=== PATIENT | female | born 1995 | race Caucasian/White ===

== ENCOUNTER 2022-01-23 13:10 | Outpatient (REF) | payer OTHER, MEDICAID, SELFPAY ==
[2022-01-23 17:17] LABS: CT PCR NOT DETECTED (Not Detect.); NG PCR NOT DETECTED (Not Detect.)
[2022-01-24 13:19] LABS: BV Int Neg Control Negative (Negative); BV Int Pos Control Positive (Positive)
== END 2022-01-23 13:11 | disposition home or self-care (01) ==
LOC: HO.LAB 13:10
PROVIDERS: Visit Provider Advanced Practice Midwife
DX: Z01.419 Encounter for gynecological examination (general) (routine) without abnormal findings (principal); Z20.2 Contact with and (suspected) exposure to infections with a predominantly sexual mode of transmission
CPT/HCPCS: 87480; 87491; 87510; 87591; 87660; 88142

== ENCOUNTER 2022-08-16 21:47 | Emergency (ER) | payer OTHER, SELFPAY ==
--- NOTE | ~2022-08-16 | XR_ITS ---
EXAMINATION: XR SOFT TISSUE NECK CLINICAL INDICATION: Foreign body sensation COMPARISON: None TECHNIQUE: 2 views of the soft tissue neck were obtained. FINDINGS: No convincing evidence for a radiopaque foreign body. The glottis is within normal limits. Probable calcifying cartilaginous structures. Prevertebral soft tissues within normal limits. XR/XR soft tissue neck IMPRESSION: No convincing evidence for radiopaque foreign body. If Further evaluation is warranted consider CT of the neck
[2022-08-16 21:54] VITALS: BP 117/73; PULSE 77; O2SAT 100
[2022-08-16 23:44] VITALS: BP 96/72; PULSE 88; RESP 16; TEMP 36.8; O2SAT 95; BMI 20.1
[2022-08-17 00:23] LABS: Influenza A PCR NEGATIVE (Negative); Influenza B PCR NEGATIVE (Negative); Resp Syncy Virus RNA Qual PCR NEGATIVE (Negative); SARS COV2 PCR INHOUSE NEGATIVE (Negative)
== END 2022-08-17 01:15 | disposition left against medical advice (07) ==
PROVIDERS: Emergency Provider Emergency Medicine
DX: R09.89 Other specified symptoms and signs involving the circulatory and respiratory systems (principal); J02.9 Acute pharyngitis, unspecified; Z20.822 Contact with and (suspected) exposure to COVID-19
CPT/HCPCS: 0241U; 70360; 99281; 99283

== ENCOUNTER 2022-11-25 09:38 | Emergency (ER) | payer OTHER, SELFPAY ==
[2022-11-25 09:47] VITALS: BP 102/71; PULSE 99; RESP 20; TEMP 37.1; O2SAT 97; BMI 16.1
[2022-11-25 10:19] LABS: COVID-19 Test Negative (Negative); IDNOW Serial# 16C4AD1C
[2022-11-25 10:24] LABS: IDNOW Serial# BCCEAD1C; Influenza A Positive (Negative); Influenza B2 Negative (Negative)
--- NOTE | 2022-11-25 10:58 | ED_ITS ---
HPI - URI/Sore Throat General Chief Complaint: Upper Respiratory Symptoms Stated Complaint: Flu symptoms Time Seen by Provider: 11/25/22 10:46 Source: patient Mode of arrival: ambulatory History of Present Illness HPI Narrative: 27-year-old female with no significant past medical history presenting to the ED complaining of myalgias, chills, body aches, subjective fever, and productive cough since yesterday. Reports mild SOB. Denies ear pain, sore throat, chest pain, pedal edema, recent travel, sick contacts MD elicited complaint: fever, cough, rhinorrhea and nasal congestion Related Data Previous Rx's Medication Instructions Recorded doxycycline hyclate 100 mg tablet 100 mg PO BID #14 tabs 01/25/22 metronidazole 500 mg tablet 500 mg PO Q12H #14 tabs 01/25/22 albuterol sulfate 90 mcg/actuation 2 puff inhalation Q4-6H PRN 11/25/22 aerosol inhaler shortness of breath or wheezing #6.7 grams benzonatate 100 mg capsule 100 mg PO TID PRN cough #14 caps 11/25/22 fluticasone propionate 50 2 spray intranasal DAILY #16 grams 11/25/22 mcg/actuation nasal spray,suspension (Flonase Allergy Relief) Allergies Allergy/AdvReac Type Severity Reaction Status Date / Time No Known Allergies Allergy Unverified 01/23/22 13:18 Review of Systems Review of Systems: Constitutional: +subj Fever, + Chills ENT/Mouth: No Ear Pain, + Nasal Congestion, No Sinus Pain, No Hoarseness, No sore throat, + Rhinorrhea, No Swallowing Difficulty Cardiovascular: No Chest Pain, + SOB Respiratory: + Cough, + Sputum, No Wheezing Gastrointestinal: No Nausea, No Vomiting, No Diarrhea, No Constipation, No Abdominal pain Genitourinary: No Dysuria, No Urinary Frequency, No Hematuria, No Flank Pain Musculoskeletal: No joint pain, + Myalgias, No Joint Swelling Skin: No Skin Lesions, No rash Neuro: No Weakness, No Numbness, No Paresthesias Yes all other systems are reviewed and are negative Constitutional: Constitutional: Reports as per [facility] Past Medical History Attestation statement: The following information was validated with the patient. Social History Social History Alcohol intake: never Patient Tobacco Use Status: Never used Tobacco Advance Directives: No Advance Directives Information Provided: No Gender identity: Female Physical Exam Vital Signs: Vital Signs: Last Vital Signs Temp 98.8 F 11/25/22 09:47 Pulse 97 11/25/22 11:22 Resp 16 11/25/22 11:22 BP 102/71 11/25/22 09:47 Pulse Ox 97 11/25/22 09:47 O2 Del Method 11/25/22 09:47 BMI result Body Mass Index 16.1 Const: General: cooperative, healthy appearing and no acute distress Orientation/consciousness: patient oriented x3 Limitations: no limitations HEENT: Head: Yes normal to inspection and Yes atraumatic Ears: hearing courtney sly normal bilaterally, external ears normal, TM's normal bilaterally and mastoids normal General nose exam: Normal external nose present Face and sinus: Yes normal facial exam Mouth: Normal oral and palatal mucosa present Throat: Yes posterior oropharynx normal, Yes tonsils normal, Yes uvula midline, No peritonsillar mass, No uvula laterally displaced and No uvular edema Eyes: General: appearance normal, both eyes and all related structures EOM: EOMs intact bilaterally Neck: Neck: Yes normal visual inspection and Yes no meningeal signs Resp: Effort & Inspection: normal respiratory effort and no respiratory distress Auscultation: wheezes (Mild end-expiratory) Cardio: Rate: regular rate Heart sounds: S1 normal heart sound present and S2 normal heart sound present GI: Inspection: Yes normal to inspection Palpation (GI): Soft to palpation, nontender, no guarding and not rigid Skin: Rashes: no rashes Wounds: no wounds Neuro: General: patient oriented x3, tone normal and no meningeal signs Gait exam (Neuro): Normal gait present Extrem: General: Yes normal to inspection, Yes no pedal edema and Yes no calf tenderness Course Course Course Narrative: -Influenza a positive XR chest 1V IMPRESSION: Unremarkable examination. Results discussed with patient including worrisome signs and symptoms and strict return precautions, and when to return to the emergency department. They verbalized understanding and feel safe for discharge at this time. Medications Administered Discontinued Medications Generic Name Dose Route Start Last Admin Trade Name Freq PRN Reason Stop Dose Admin Albuterol/Ipratropium 3 ml 11/25/22 11:05 11/25/22 11:21 Albuterol/Iprat 2.5/0.5mg 3 Ml Ampul.Neb INHALE 11/25/22 11:06 3 ml ONCE ONE Administration Medical Decision Making Medical Decision Making [facility] Narrative: 27-year-old female with no significant past medical history presenting to the ED complaining of myalgias, chills, body aches, subjective fever, and productive cough since yesterday. On exam vital signs stable, NAD, nontoxic appearing, mild end-expiratory wheeze noted, no pedal edema/calf tenderness. Concern for viral illness vs bronchitis vs pneumonia. Lower suspicion for ACS/PE Plan: COVID-19/influenza/RSV testing, CXR, DuoNeb Differential Diagnosis Differential Diagnoses: The differential diagnosis associated with the presenta tion includes As above Lab Data Labs: Lab Results 11/25/22 11/25/22 Range/Units 09:52 09:52 COVID-19 (RADHIKA) Negative (Negative) COVID-19 Clin Com See Note Influenza Type A (SHIV) Positive A (Negative) Influenza Type B (SHIV) Negative (Negative) Influenza A & B Note See Note Discharge Plan Discharge Clinical Impression: Influenza A Patient Disposition: Home, Self-Care Instructions: Influenza (ED) Additional Instructions: You have influenza A. your x-ray is unremarkable Take Tylenol and Motrin. Rest. Stay hydrated. Flonase is a nasal decongestion. Tessalon Perles are for cough. Albuterol inhaler can help with wheezing/shortness of breath If symptoms persist or worsen, you have fever unresolved medications return to the emergency department Follow-up with your doctor Prescriptions: New benzonatate 100 mg capsule 100 mg PO TID PRN (Reason: cough) Qty: 14 0RF albuterol sulfate 90 mcg/actuation HFA aerosol inhaler 2 puff inhalation Q4-6H PRN (Reason: shortness of breath or wheezing) Qty: 6.7 0RF fluticasone propionate [Flonase Allergy Relief] 50 mcg/actuation spray,suspension 2 spray intranasal DAILY Qty: 16 0RF Rx Instructions: administer into each nostril No Action doxycycline hyclate 100 mg tablet 100 mg PO BID Qty: 14 0RF metronidazole 500 mg tablet 500 mg PO Q12H Qty: 14 0RF Referrals: Physician,None [Primary Care Provider] - 5 days
[2022-11-25 11:22] VITALS: PULSE 97; RESP 16; O2SAT 99
== END 2022-11-25 13:06 | disposition home or self-care (01) ==
PROVIDERS: Emergency Provider Emergency Medicine
DX: J11.1 Influenza due to unidentified influenza virus with other respiratory manifestations (principal); R06.02 Shortness of breath
CPT/HCPCS: 71045; 87502; 87635; 94640; 99283; 99284

== ENCOUNTER 2023-02-25 02:00 | Emergency (ER) | payer OTHER, SELFPAY ==
--- NOTE | ~2023-02-25 | XR_ITS ---
EXAMINATION: XR HAND, RIGHT CLINICAL INFORMATION: Right thumb pain. Trauma. COMPARISON: None available. TECHNIQUE: PA, lateral, and oblique views of the right hand. FINDINGS: No fracture or dislocation. Appropriate alignment. Joint spaces are maintained. The soft tissues are unremarkable. XR/XR hand RT min 3V IMPRESSION: Normal right hand.
[2023-02-25 02:09] VITALS: BP 115/88; PULSE 76; RESP 18; TEMP 36.3; O2SAT 98; BMI 21.7
--- NOTE | 2023-02-25 02:42 | ED.UPPEXIN ---
HPI - Extremity Injury (Upper) General Chief Complaint: Wound/Laceration Stated Complaint: Bruise on right thumb Time Seen by Provider: 02/25/23 02:27 Source: patient Mode of arrival: ambulatory Limitations: no limitations History of Present Illness HPI narrative: Patient came for right thumb pain after she jammed in the car door last night since then complaining of throbbing pain with blood under the nail no other injury Related Data Previous Rx's Medication Instructions Recorded doxycycline hyclate 100 mg tablet 100 mg PO BID #14 tabs 01/25/22 metronidazole 500 mg tablet 500 mg PO Q12H #14 tabs 01/25/22 albuterol sulfate 90 mcg/actuation 2 puff inhalation Q4-6H PRN 11/25/22 aerosol inhaler shortness of breath or wheezing #6.7 grams benzonatate 100 mg capsule 100 mg PO TID PRN cough #14 caps 11/25/22 fluticasone propionate 50 2 spray intranasal DAILY #16 grams 11/25/22 mcg/actuation nasal spray,suspension (Flonase Allergy Relief) Allergies Allergy/AdvReac Type Severity Reaction Status Date / Time No Known Allergies Allergy Verified 02/25/23 02:12 Review of Systems Review of Systems: Yes all other systems are reviewed and are negative [facility] Social History Social History Alcohol intake: current Alcohol intake frequency: holidays/special occasions only Patient Tobacco Use Status: Never used Tobacco Smoked in Last 30 Days: Yes Use of substances other than those prescribed or required for medical reasons: No Advance Directives: No Patient : No Gender identity: Female Physical Exam Vital Signs: Vital Signs: Last Vital Signs Temp 97.4 F 02/25/23 02:09 Pulse 76 02/25/23 02:09 Resp 18 02/25/23 02:09 BP 115/88 02/25/23 02:09 Pulse Ox 98 02/25/23 02:09 O2 Del Method Room Air 02/25/23 02:09 BMI result Body Mass Index 21.7 Extrem: Hand/finger images: 1. Small subungual hematoma with swelling of the left thumb neurovascular intact good range of movement Medical Decision Making Medical Decision Making MDM Narrative: Small right subungal hematoma with contusion blood drained by using heat cautery patient feeling much better dressing applied x-ray negative for fracture Procedures Procedure Narrative Procedure Narrative: Subungual hematoma drainage right thumb using heat cautery 2 puncture holes were made at the base of right thumb and old blood was drained patient felt much better Discharge Plan Discharge Clinical Impression: Hematoma, subungual, thumb, right Patient Disposition: Home, Self-Care Instructions: Hematoma (ED) Additional Instructions: Local care as advised Ibuprofen for pain Prescriptions: No Action doxycycline hyclate 100 mg tablet 100 mg PO BID Qty: 14 0RF metronidazole 500 mg tablet 500 mg PO Q12H Qty: 14 0RF benzonatate 100 mg capsule 100 mg PO TID PRN (Reason: cough) Qty: 14 0RF albuterol sulfate 90 mcg/actuation HFA aerosol inhaler 2 puff inhalation Q4-6H PRN (Reason: shortness of breath or wheezing) Qty: 6.7 0RF fluticasone propionate [Flonase Allergy Relief] 50 mcg/actuation spray,suspension 2 spray intranasal DAILY Qty: 16 0RF Rx Instructions: administer into each nostril Stand Alone Forms: Work/School Release Interventions: ED Discharge Assessment Last Done: 02/25/23 03:55 Discharge Date/Time: 02/25/23 03:55
== END 2023-02-25 03:55 | disposition home or self-care (01) ==
PROVIDERS: Emergency Provider Internal Medicine
DX: S60.111A Contusion of right thumb with damage to nail, initial encounter (principal); W23.0XXA Caught, crushed, jammed, or pinched between moving objects, initial encounter; Y93.89 Activity, other specified; Y92.810 Car as the place of occurrence of the external cause; Y99.9 Unspecified external cause status
CPT/HCPCS: 11740; 73130; 99283; 99284

== ENCOUNTER 2023-03-04 11:33 | Outpatient (REF) | payer OTHER, SELFPAY ==
[2023-03-05 10:32] LABS: CT PCR NOT DETECTED (Not Detect.); NG PCR NOT DETECTED (Not Detect.)
[2023-03-05 13:05] LABS: BV Int Neg Control Negative (Negative); BV Int Pos Control Positive (Positive)
== END 2023-03-04 11:34 | disposition home or self-care (01) ==
LOC: HO.LAB 11:33
PROVIDERS: Visit Provider Advanced Practice Midwife
DX: Z20.2 Contact with and (suspected) exposure to infections with a predominantly sexual mode of transmission (principal); Z30.017 Encounter for initial prescription of implantable subdermal contraceptive; Z30.09 Encounter for other general counseling and advice on contraception
CPT/HCPCS: 0353U; 87480; 87510; 87660

== ENCOUNTER 2023-03-04 13:05 | Outpatient (REF) | payer OTHER, SELFPAY | END 2023-03-04 13:06 | disposition home or self-care (01) | LOC: HO.LNP 13:05 | PROVIDERS: Visit Provider Advanced Practice Midwife | DX: Z01.419 Encounter for gynecological examination (general) (routine) without abnormal findings (principal) | CPT/HCPCS: 88142 ==

== ENCOUNTER → 2023-05-06 14:34 | Outpatient (BNVA) | payer OTHER, SELFPAY | PROVIDERS: Visit Provider Advanced Practice Midwife | DX: Z30.017 Encounter for initial prescription of implantable subdermal contraceptive (principal); Z30.09 Encounter for other general counseling and advice on contraception | CPT/HCPCS: 11981; 81025; 99212; J7307 ==

== ENCOUNTER 2023-08-13 11:01 | Outpatient (AMB) | payer OTHER, SELFPAY ==
[2023-08-13 11:32] VITALS: BP 110/70; BMI 24.6
--- NOTE | 2023-08-13 11:32 | MHC.OFFVIS ---
Intake Vital Signs 08/13/23 11:32 Height 5 ft 6 in Weight 152 lb 6 oz BMI 24.6 BP 110/70 Blood Pressure Location Rt brachial Position Sitting Intake Visit Reasons: Nexplanon removal Allergies No Known Allergies Allergy (Verified 08/13/23 11:34) Medication List - Last Reconciled 08/13/23 by Anh Basurto CNM etonogestrel (Nexplanon) subdermal HPI Nexplanon removal HPI Details Patient is here because she was hoping to get her Nexplanon removed today. She called for this appointment this morning she has a scheduled appointment to discuss this in October but she had a cancellation from work because of the schools being closed because of the water main break so she called for this today. She had the Nexplanon removed inserted after full counseling in May. She has use other methods of control before. She also uses condoms. She and her partner have had discussions and she says that he is not ready for parenting and she has had the conversation with him that if she did get she would continue the . She is experiencing unpleasant pinkish brownish discharge kind of all the time it is not bleeding like full. There is no malodor or itching she is not worried about STDs. She also has been experiencing decreased libido and being more dry and she finds these unpleasant and she wants to go back to her own self without extraneous hormones. At the end of the visit she also shared that she is actually contemplating breaking up with this particular partner but she does not feel the need to necessarily be sexually active until she finds herself in the place with the right person. She was aware of signs of fertility and ovulation based on symptoms and increased libido before iron to this being inserted. She is content with condom use and actually likes it also for STI prevention and safety and if she became active with anyone else even she would use condoms. I discussed that it is important that were having this conversation today but that I do not remove Nexplanon on an urgent basis unless there is an urgent reason to do so and I did discuss the option of planning for a sooner appointment for removal of the Nexplanon now that she is planning and also using a temporary course of oral contraceptives that she could take for either a week or continue for the full pill pack to see if it would at least ameliorate the bleeding spotting discharge issues breakthrough bleeding on the Nexplanon is a common concerned this sometimes can be managed with a brief course of oral contraceptives. I offered this to her but we will plan on a sooner removal of the Nexplanon should an appointment open up sooner than October. Discussed safer sex and her desires for self-care and safer sex and guarding of her fertility and autonomy, as she moves forward. [facility] Social History Alcohol intake: current Alcohol intake frequency: holidays/special occasions only Patient Tobacco Use Status: Never used Tobacco Gender identity: Female Female Reproductive History Menstrual Age of Menarche: 17 Physical Exam Vital Signs: Last Vital Signs BP 110/70 08/13/23 11:32 BMI result Body Mass Index 24.6 Const Other: Nexplanon is palpable in the patient's left arm. Assessment & Plan Assessment & Plan (1) control counseling: Code(s): Z30.09 - Encounter for other general counseling and advice on contraception (2) Breakthrough bleeding on Nexplanon: Code(s): N92.1 - Excessive and frequent menstruation with irregular cycle; Z97.5 - Presence of (intrauterine) contraceptive device Plan Patient is here because she was hoping to get her Nexplanon removed today. She called for this appointment this morning she has a scheduled appointment to discuss this in October but she had a cancellation from work because of the schools being closed because of the water main break so she called for this today. She had the Nexplanon removed inserted after full counseling in May. She has use other methods of control before. She also uses condoms. She and her partner have had discussions and she says that he is not ready for parenting and she has had the conversation with him that if she did get she would continue the . She is experiencing unpleasant pinkish brownish discharge kind of all the time it is not bleeding like full. There is no malodor or itching she is not worried about STDs. She also has been experiencing decreased libido and being more dry and she finds these unpleasant and she wants to go back to her own self without extraneous hormones. At the end of the visit she also shared that she is actually contemplating breaking up with this particular partner but she does not feel the need to necessarily be sexually active until she finds herself in the place with the right person. She was aware of signs of fertility and ovulation based on symptoms and increased libido before iron to this being inserted. She is content with condom use and actually likes it also for STI prevention and safety and if she became active with anyone else even she would use condoms. I discussed that it is important that were having this conversation today but that I do not remove Nexplanon on an urgent basis unless there is an urgent reason to do so and I did discuss the option of planning for a sooner appointment for removal of the Nexplanon now that she is planning and also using a temporary course of oral contraceptives that she could take for either a week or continue for the full pill pack to see if it would at least ameliorate the bleeding spotting discharge issues breakthrough bleeding on the Nexplanon is a common concerned this sometimes can be managed with a brief course of oral contraceptives. I offered this to her but we will plan on a sooner removal of the Nexplanon should an appointment open up sooner than October. Discussed safer sex and her desires for self-care and safer sex and guarding of her fertility and autonomy, as she moves forward. Medications: New desog-e.estradiol/e.estradiol 0.15-0.02 mgx21 /0.01 mg x 5 May take for 1 week, or the full pack for breakthrough bleeding from nexplanon 1 tab PO DAILY 28 tabs 0RF Coding Level of Care Code Est Pt Level 3 (84912) Diagnoses control counseling Z30.09 Breakthrough bleeding on Nexplanon N92.1; Z97.5
== END 2023-08-13 12:19 | disposition home or self-care (01) ==
PROVIDERS: Visit Provider Advanced Practice Midwife
DX: Z30.09 Encounter for other general counseling and advice on contraception (principal); N92.1 Excessive and frequent menstruation with irregular cycle; Z97.5 Presence of (intrauterine) contraceptive device
CPT/HCPCS: 99213

== ENCOUNTER → 2023-08-13 11:01 | Outpatient (BNVA) | payer OTHER, SELFPAY | PROVIDERS: Visit Provider Advanced Practice Midwife | DX: Z30.09 Encounter for other general counseling and advice on contraception (principal); N92.1 Excessive and frequent menstruation with irregular cycle; Z97.5 Presence of (intrauterine) contraceptive device | CPT/HCPCS: 99212 ==

== ENCOUNTER 2023-10-06 09:27 | Outpatient (AMB) | payer OTHER, SELFPAY ==
[2023-10-06 09:44] VITALS: BP 106/68; BMI 26.3
--- NOTE | 2023-10-06 09:44 | A.OFFVIS_ITS ---
Intake Vital Signs 10/06/23 09:44 Height 5 ft 6 in Weight 163 lb BMI 26.3 BP 106/68 Intake Visit Reasons: Nexplanon removal Aemt Required: No Information Interpreted: non-clinical & clinical Grants Officer: Grants Officer Present (Aidyn) Allergies No Known Allergies Allergy (Verified 10/06/23 09:44) Medication List - Last Reconciled 10/06/23 by Anh Basurto CNM etonogestrel (Nexplanon) subdermal Is last menstrual period known: No Post menopausal: No Patient : No HPI Nexplanon removal HPI Details Patient is here to get her Nexplanon removed it was inserted in May s he has not had her period since she does not like how she feels with it in sort of premenstrual all the time and she also has gained weight on it. 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 She needs a note to excuse her from work today. She has broken up with her partner she still has the control pills if she wanted to start them but she actually thinks that she would prefer to use condoms she did have a condom break in May and she used Plan B and she thinks that that would be her main planned but she still has the pills in case she wanted to start them. [facility] Social History Alcohol intake: current Alcohol intake frequency: holidays/special occasions only Patient Tobacco Use Status: Never used Tobacco Gender identity: Female Female Reproductive History Menstrual Age of Menarche: 17 control method: implanted Date of last pap smear: 03/05/23 (negative) Physical Exam Vital Signs: Last Vital Signs BP 106/68 10/06/23 09:44 BMI result Body Mass Index 26.3 Const Other: Nexplanon palpable in left arm. Office Procedures Contraception Insert/Removal Details Details: Nexplanon Removal/Reinsertion Insertion Procedure The patient was placed in a supine position with her non dominant hand resting under her head. The insertion site was located: 8-10cm from the medial epicondyle notch of the humerus, posterior to the sulcus, between the triceps and biceps muscle. The area of the previous implant was identified and the distal tip located. This area was cleansed with an alcohol prep and 3 ml of 1% Lidocaine on a 25 gauge needle and syringe was utilized for adequate anesthesia to the insertion site. After ascertaining adequate anesthesia, the area was prepped with Betadine solution. The skin over the distal tip was incised with a #11 blade scalpel and the capsule was located and entered freeing the implant from the canal. The implant was removed with a gentle tug using a mosquito clamp and removed intact. Direct pressure was applied to the insertion site for hemostasis, minimal bleeding was observed. Steri strips, Tegaderm covering, gauze pads, and Rosa wrap dressing were secured with paper tape. The implant was palpable underneath the skin by myself and the patient. The patient tolerated the procedure well and left the office in good condition. [id number] - Removal Results AMB Test Urine AMB Test Urine Negative Last Edit by CASIMIRO Ramos on 10/06/23 09:50 Assessment & Plan Assessment & Plan (1) Encounter for Nexplanon removal: Code(s): Z30.46 - Encounter for surveillance of implantable subdermal contraceptive (2) control counseling: Code(s): Z30.09 - Encounter for other general counseling and advice on contraception Plan Nexplanon Removal/Reinsertion Insertion Procedure The patient was placed in a supine position with her non dominant hand resting under her head. The insertion site was located: 8-10cm from the medial epicondyle notch of the humerus, posterior to the sulcus, between the triceps and biceps muscle. The area of the previous implant was identified and the distal tip located. This area was cleansed with an alcohol prep and 3 ml of 1% Lidocaine on a 25 gauge needle and syringe was utilized for adequate anesthesia to the insertion site. After ascertaining adequate anesthesia, the area was prepped with Betadine solution. The skin over the distal tip was incised with a #11 blade scalpel and the capsule was located and entered freeing the implant from the canal. The implant was removed with a gentle tug using a mosquito clamp and removed intact. Direct pressure was applied to the insertion site for hemostasis, minimal bleed ing was observed. Steri strips, Tegaderm covering, gauze pads, and Rosa wrap dressing were secured with paper tape. The implant was palpable underneath the skin by myself and the patient. The patient tolerated the procedure well and left the office in good condition. She intends to use condoms but she does have the pills in case she changed her mind. Reviewed how to start the pills if she so chooses. Orders: Orders AMB HCG Urine Test Today Z32.02 - Encounter for test, result negative AMB Nexplanon/Implanon Insertion - Patient Supply Today Z30.46 - Encounter for surveillance of implantable subdermal contraceptive Coding Level of Care Code Est Pt Level 3 (66352) Diagnoses Encounter for Nexplanon removal Z30.46 control counseling Z30.09 CPT Codes Details - Contraception: 45975 - Removal ([id number])
== END 2023-10-06 10:34 | disposition home or self-care (01) ==
PROVIDERS: Visit Provider Advanced Practice Midwife
DX: Z30.46 Encounter for surveillance of implantable subdermal contraceptive (principal); Z30.09 Encounter for other general counseling and advice on contraception; Z32.02 Encounter for pregnancy test, result negative
CPT/HCPCS: 11982

== ENCOUNTER → 2023-10-06 09:27 | Outpatient (BNVA) | payer OTHER, SELFPAY | PROVIDERS: Visit Provider Advanced Practice Midwife | DX: Z30.46 Encounter for surveillance of implantable subdermal contraceptive (principal) | CPT/HCPCS: 11982; 81025 ==

== ENCOUNTER 2023-10-11 09:27 | Outpatient (AMB) | payer OTHER, SELFPAY ==
--- NOTE | 2023-10-11 10:51 | AM.OFFWIN_ITS ---
Intake Vital Signs 10/11/23 10:59 Height 5 ft 6 in Weight 161 lb BMI 26.0 BP 92/62 Blood Pressure Location Rt brachial Position Sitting Pulse 86 Pulse Source Pulse Oximeter Temp 98.4 F Temp Source Oral Pulse Oximetry (%) 99 Oxygen Delivery Method Room Air Intake Visit Reasons: EP, sore throat ([phone]) Intake Note: Pt is here today c/o sore throat x3days Patient Tobacco Use Status: Never used Tobacco Allergies No Known Allergies Allergy (Verified 10/11/23 10:52) HPI HPI Comments History of Present Illness Details This is a 27-year-old female with no stated past medical history presenting for evaluation of a sore throat and difficulty swallowing that she has had for the past 3 days. Patient reports mild sinus congestion but denies having any fevers, chills, ear pain, cough or shortness of breath. Patient has been drinking hot tea only for relief of her discomfort. [facility]LY [facility] Social History Alcohol intake: current Alcohol intake frequency: holidays/special occasions only Patient Tobacco Use Status: Never used Tobacco Gender identity: Female Female Reproductive History Menstrual Age of Menarche: 17 Review of Systems Const Denies chills, Denies fatigue and Denies fever(s) Eyes Reports as per HPI ENT Reports as per HPI, Reports nasal congestion, Denies sinus pain, Denies sinus pressure and Reports sore throat Card Reports no additional complaints Resp Reports no additional complaints Endo Reports no additional complaints and Denies fatigue Aller/Immun Reports no additional complaints Physical Exam Vital Signs: Last Vital Signs Temp 98.4 F 10/11/23 10:59 Pulse 86 10/11/23 10:59 BP 92/62 10/11/23 10:59 Pulse Ox 99 10/11/23 10:59 Oxygen Delivery Method Room Air 10/11/23 10:59 BMI result Body Mass Index 26.0 Const General: cooperative, healthy appearing, comfortable and well developed; No ill appearing Nutritional Appearance: average body habitus Orientation/consciousness: patient oriented x3 Limitations: no limitations HEENT Head: Yes normal to inspection and Yes normocephalic Ears: hearing grossly normal bilaterally, external ears normal, TM's normal bilaterally and EAC's normal General nose exam: Normal external nose present Face and sinus: Yes normal facial exam and No sinus tenderness Mouth: Normal oral and palatal mucosa present, tongue normal and moist mucous membranes Teeth and gingiva: dentition normal Throat: Yes uvula midline, No peritonsillar mass and Yes posterior oropharynx abnormal ( There is erythema, edema without exudate of the posterior oropharynx) Eyes General: appearance normal, both eyes and all related structures Eyelids: Yes eyelids normal Conjunctivae: conjunctivae normal Sclerae: sclerae normal Corneas: corneas normal Pupils: Equal, round and reactive pupils present Neck Lymphatic: lymphadenopathy (anterior cervical, bilaterally) Resp Effort & Inspection: normal respiratory effort Auscultation: clear to auscultation bilaterally Cardio Rate: regular rate Rhythm: regular rhythm Neuro General: patient oriented x3 Cranial nerves: Yes Equal, round and reactive pupils present Psych Appearance: grossly normal Mental Status: mental status grossly normal Insight: Good insight present (Psych) Judgement: Good judgement present (Psych) Results AMB Rapid Strep AMB Rapid Strep Negative Last Edit by Rachel Mclean CMA on 10/11/23 11:07 Results Reviewed Results Reviewed: negative rapid strep reviewed with patient. Assessment & Plan Assessment & Plan (1) Acute pharyngitis: Code(s): J02.9 - Acute pharyngitis, unspecified Plan: Given this patient's history coupled with her examination, antibiotic therapy will be initiated for ongoing management of this presumed bacterial pharyngitis. Orders: Orders AMB Rapid Strep Screen Today Z13.9 - Encounter for screening, unspecified Medications: New penicillin V potassium 500 mg PO TID 30 tabs 0RF Coding Level of Care Code Est Pt Level 3 (11927) Diagnoses Acute pharyngitis J02.9 Time Spent (min) 20
[2023-10-11 10:59] VITALS: BP 92/62; PULSE 86; TEMP 36.9; O2SAT 99; BMI 26.0
== END 2023-10-11 11:13 | disposition home or self-care (01) ==
PROVIDERS: Visit Provider Physician Assistant
DX: J02.9 Acute pharyngitis, unspecified (principal)
CPT/HCPCS: 87880; 99051; 99213

== ENCOUNTER 2024-01-04 07:16 | Emergency (ER) | payer OTHER, SELFPAY ==
[2024-01-04 07:32] VITALS: BP 120/78; PULSE 80; RESP 14; TEMP 37.2; O2SAT 100; BMI 23.3
[2024-01-04 08:14] LABS: IDNOW Serial# 9DB6401D; Influenza A Negative (Negative); Influenza B2 Negative (Negative)
--- NOTE | 2024-01-04 08:20 | ED.GENADULT ---
HPI - General Adult General Chief complaint: General Medical Stated complaint: Sore throat Time Seen by Provider: 01/04/24 07:31 Related Data Previous Rx's Medication Instructions Recorded penicillin V potassium 500 mg 500 mg PO TID #30 tabs 10/11/23 tablet Allergies Allergy/AdvReac Type Severity Reaction Status Date / Time No Known Allergies Allergy Verified 10/11/23 10:52 [facility] Social History Social History Alcohol intake: current Alcohol intake frequency: holidays/special occasions only Patient Tobacco Use Status: Never used Tobacco Smoked in Last 30 Days: No Use of substances other than those prescribed or required for medical reasons: Yes Substance Use Type: Marijuana Substance Use Frequency: Socially Last Used Substance: Days (ago) Advance Directives: No Advance Directives Information Provided: Yes Patient : No Gender identity: Female Physical Exam ED Vital Signs: Vital Signs - 24 hr 01/04/24 07:32 Temperature 99.0 F Pulse Rate 80 Respiratory Rate 14 Blood Pressure 120/78 Pulse Oximetry 100 Oxygen Delivery Method Room Air BMI result Body Mass Index 23.3 Medical Decision Making Lab Data Labs: Lab Results 01/04/24 Range/Units 07:53 Influenza Type A (SHIV) Negative (Negative) Influenza Type B (SHIV) Negative (Negative) Influenza A & B Note See Note Discharge Plan Discharge Prescriptions: No Action penicillin V potassium 500 mg tablet 500 mg PO TID Qty: 30 0RF
[2024-01-04 08:22] LABS: COVID-19 Test Positive (Negative); IDNOW Serial# 58CA691E
[2024-01-04 08:23] LABS: IDNOW Serial# 08D9AD1C; Strep A Nucleic Acid Negative (Negative)
--- NOTE | 2024-01-04 08:25 | ED_ITS ---
HPI - URI/Sore Throat General Chief Complaint: General Medical Stated Complaint: Sore throat Time Seen by Provider: 01/04/24 07:31 Source: patient Mode of arrival: ambulatory Limitations: no limitations History of Present Illness HPI Narrative: Patient is a 28-year-old female who presents emergency department for evaluation of sore throat and myalgias with onset 2 days ago Denies fevers, chills, headache, dizziness, neck pain, neck stiffness, chest pain, shortness of breath, difficulty breathing, cough, nausea, vomiting, abdominal pain, numbness or tingling of the extremities, genitourinary symptoms. Related Data Previous Rx's Medication Instructions Recorded penicillin V potassium 500 mg 500 mg PO TID #30 tabs 10/11/23 tablet Allergies Allergy/AdvReac Type Severity Reaction Status Date / Time No Known Allergies Allergy Verified 10/11/23 10:52 Review of Systems Review of Systems: Yes all other systems are reviewed and are negative PMFSH Past Medical History Attestation statement: The following information was validated with the patient. Source: old records reviewed Social History Social History Alcohol intake: current Alcohol intake frequency: holidays/special occasions only Patient Tobacco Use Status: Never used Tobacco Smoked in Last 30 Days: No Use of substances other than those prescribed or required for medical reasons: Yes Substance Use Type: Marijuana Substance Use Frequency: Socially Last Used Substance: Days (ago) Advance Directives: No Advance Directives Information Provided: Yes Patient : No Gender identity: Female Physical Exam Vital Signs: Vital Signs: Last Vital Signs Temp 99.0 F 01/04/24 07:32 Pulse 80 01/04/24 07:32 Resp 14 01/04/24 07:32 BP 120/78 01/04/24 07:32 Pulse Ox 100 01/04/24 07:32 O2 Del Method Room Air 01/04/24 07:32 BMI result Body Mass Index 23.3 Appearance: Alert.?Oriented to person, place and time. No acute distress.?Normal affect. Eyes: Pupils equal, round and reactive to light.? ENT: TM normal bilaterally. Pharynx erythematous with 1+ tonsillar hypertrophy. Neck: Normal inspection.? Neck supple.??No cervical adenopathy CVS: Heart sounds normal. Normal heart rate and rhythm.? Pulses normal.?? Respiratory: No respiratory distress.? Lung sounds clear to auscultation bilaterally?? Abdomen: Soft and non-tender. Normoactive bowel sounds. Skin: Skin warm and dry.? Normal skin color.? ? Extremities: No lower extremity edema.? Neuro: Moves all extremities spontaneously. Sensation intact bilaterally. No motor deficits. Ambulates with normal steady gait. Medical Decision Making Medical Decision Making [facility] Narrative: Patient is a 28-year-old female presenting for evaluation of sore throat and myalgias COVID-19 testing positive, discussed emergency use authorization Jane, declines treatment, Influenza/strep testing negative. At this time history and physical exam not consistent with peritonsillar retropharyngeal abscess Well-appearing, nontoxic, afebrile, no tachycardia or tachypnea/hypoxia. Speaking clear full sentences, ambulatory with steady gait. Discussed conservative treatment including rest, hydration, Tylenol/ibuprofen as needed for fever and body aches, saline nasal spray, humidifier, [id number] cold medication. Advised to follow-up with primary care provider as needed, discussed reasons to return back to the emergency department. All questions were answered. Patient discharged home in stable condition. Provided with a return to work/school note. Differential Diagnosis Differential Diagnoses: The differential diagnosis associated with the presentation includes ( See narrative above) Admission/Observation Consideration of admission/observation: Escalation of care including admission/observation considered ( see narrative above) Lab Data [facility] Lab Attestation statement: I reviewed the patient's lab results. ( see narrative above) Labs: Lab Results 01/04/24 Range/Units 07:53 COVID-19 (RADHIKA) Positive A (Negative) COVID-19 Clin Com See Note Influenza Type A (SHIV) Negative (Negative) Influenza Type B (SHIV) Negative (Negative) Influenza A & B Note See Note S. pyogenes GrpA SHIV Negative (Negative) Prescription Management I considered prescription management with: Pain Medication ( acetaminophen/ibuprofen) and Antiviral (See narrative above) Discharge Plan Discharge Clinical Impression: COVID-19 Patient Disposition: Home, Self-Care Instructions: COVID-19 (Coronavirus Disease 2019) (ED) Additional Instructions: Soonest end isolation date 01/08/2024 per CDC guidelines. Be sure to rest, stay well hydrated drinking plenty of fluids, eat small frequent meals. Tylenol/ibuprofen can be used as needed for fever/pain. [id number] cold medications may be helpful as well for symptoms. Saline nasal spray, humidifier may be helpful for nasal congestion. You may return to the emergency department with any new or worsening symptoms or concerns. Follow-up with your primary care provider as needed. S Prescriptions: No Action penicillin V potassium 500 mg tablet 500 mg PO TID Qty: 30 0RF Referrals: Physician,None [Primary Care Provider] - Stand Alone Forms: Work/School Release
[2024-01-04 08:46] VITALS: BP 117/78; PULSE 79; RESP 18; TEMP 37.1; O2SAT 99
== END 2024-01-04 08:52 | disposition home or self-care (01) ==
PROVIDERS: Nurse Practitioner Family; Emergency Provider Student in an Organized Health Care Education/Training Program
DX: U07.1 COVID-19 (principal); J02.9 Acute pharyngitis, unspecified; M79.10 Myalgia, unspecified site
CPT/HCPCS: 87502; 87635; 87651; 99283; 99284

== ENCOUNTER 2025-10-21 13:59 | Outpatient (REF) | payer OTHER, SELFPAY ==
--- OUTSIDE RECORDS SUMMARY | 2025-10-21 14:25 | XMS_ITS | Clinical Summary ---
Author Organization [facility] Address [address] [address] Phone Care Team Providers Care [employer] In[employer] Name Role Phone Pcp, Unknown Primary Care Provider Unavailabl e Active Problems Problem Noted Date Diagnosed Date Encounter for supervision of normal first in first trimester 02/21/2025 Assessment & Plan (02/21/2025 10:28 AM EDT): Estimated Date of Delivery Comme nts Yes 10/03/2025 Based on last me nstrual period of 12/27/2024 Social History Tobacco Use Types Packs/Day Years Used Date Smoking Tobacco: Never Assessed Education Answer Date Recorded Are you interested in more education? Not on dolores e 01/31/2025 Are you concerned about learning? Not on file 01/31/2025 No 01/31/2025 No 01/31/2025 Digital Access Answer Date Recorded No 01/31/2025 No 01/31/2025 Reliable internet access at home? Not on file 01/31/2025 Device with a working camera? Not on file Estimated Date of Delivery Comme nts Yes 10/03/2025 Based on last me nstrual period of 12/27/2024 Sex and Gender Information Value Date Recorded Sex Assigned at Not on file Legal Sex Female 1:04 PM EST Gender Identity Not on file Sexual Orientation Not on file Plan of Treatment Health Maintenance Due Date Last Done Comments Adult Td,Tdap Booster 1996 DEPRESSION SCREENING 2008 SMOKING Hx and SMOKELESS TOB ACCO SCREENING 2009 HEPATITIS C SCREENING 2014 HIV ONE-TIME SCREENING (18-6 5 YEARS) 2014 PAP SMEAR 2017 INFLUENZA VACCINE (#1) 2025 COVID-19 VACCINE ( - 2024-2 6 season) 2025 HEPATITIS A VACCINES Aged Out No long er eligible based on patient's age to complete this topic HIB VACCINES Aged Out No longer eligi ble based on patient's age to complete this topic MENINGOCOCCAL VACCINES (ACWY) Aged Out No longer eligible based on patient's age to complete this topic MENINGOCOCCAL VACCINES (B) Aged Out N o longer eligible based on patient's age to complete this topic PNEUMOCOCCAL VACCINES (0-49 years) Aged Out No longer eligible based on patient's age to complete this topic RSV VACCINE (No Doses Required) Completed Medical Devices Not on file Insurance [employer] ACO Member Subscriber Plan / Payer (Ef fective 2025-Present) Name:Brittanie Mccollum Relation to Subscriber:Self Name:Brittanie Mccollum Payer ID:Not on file Type:Medicaid Address: [place] [id number] Care Teams [employer] Instructor Relationship Specialty Start Date End Date Pcp, Unknown PCP - General 01/31/25 Additional Source Comments The information contained in this document represents components of the legal health record. It is not the complete legal health record.[facility]
== END 2025-10-21 14:00 | disposition home or self-care (01) ==
LOC: HO.LAB 13:59
PROVIDERS: Visit Provider Advanced Practice Midwife
DX: N92.6 Irregular menstruation, unspecified (principal)
CPT/HCPCS: 36415; 84702